=== PATIENT | male | born 1970 | race Caucasian/White ===

== ENCOUNTER 2020-10-21 16:49 | Emergency (ER) | payer OTHER ==
[~2020-10-21] VITALS: Ht 188 cm; Wt 105.0 kg
[2020-10-21] MEDS ORDERED: cephalexin 250mg capsule PO ONE (20:25)
[2020-10-21] MEDS ORDERED: sulfamethoxazole/trimethoprim DS (800/160mg) tablet PO ONE (20:25)
[2020-10-21] MEDS ORDERED: CEPH500C5 PO (20:32)
[2020-10-21] MEDS ORDERED: BACDS PO (20:32)
[2020-10-21 20:48] VITALS: BP 137/99
== END 2020-10-21 20:50 | disposition home or self-care (01) ==
LOC: ER 16:50
DX: L03.012 Cellulitis of left finger (principal); F15.90 Other stimulant use, unspecified, uncomplicated; Z79.2 Long term (current) use of antibiotics; Z79.899 Other long term (current) drug therapy
CPT/HCPCS: 99283